=== PATIENT | female | born 2000 | race Caucasian/White ===

== ENCOUNTER 2022-07-10 14:46 | Emergency (ER) | payer BC ==
[~2022-07-10] VITALS: Ht 165.1 cm; Wt 54.4 kg
--- NOTE | 2022-07-10 20:22 | EKG ---
[facility] [address] [facility] [address] [facility] [place], [place] [address] Signed Normal sinus rhythm with sinus arrhythmia Normal ECG No previous ECGs available Confirmed by SHANTEL GOETZ MD [id number] on 07/10/2022 8:22:18 PM Electronically Signed By: SHANTEL GOETZ MD 07/10/222021 PATIENT NAME: LYNETTE PATEL Electrocardiogram DATE OF : [birth year] PHYSICIAN: SHANTEL GOETZ MD REPORT #: [id number] REPORT IS CONFIDENTIAL AND NOT TO BE RELEASED WITHOUT AUTHORIZATION
== END 2022-07-10 16:53 | disposition home or self-care (01) ==
LOC: ED 14:46
DX: R00.2 Palpitations (principal)
CPT/HCPCS: 36415; 80053; 84443; 84703; 85025; 93005; 93010; 99285-25